=== PATIENT | male | born 1995 | race African-American/Black ===

== ENCOUNTER 2017-02-07 19:06 | Inpatient (IN) | payer OTHER ==
--- NOTE | ~2017-02-07 | PN ---
Unit #: [id number] #: [id number] Patient: YVONNE NICHOLAS [id number] [facility] [address] [place] [address] [id number] MR#: [id number] NAME: YVONNE NICHOLAS ROOM: [facility] Age: 21 Sex: M Admission Date: 02/07/2017 : 1995 Attending Physician: Luis Angel Michael M.D. Admitting Physician: Xavier Ruiz NOTES DATE OF SERVICE: 02/10/2017 SUBJECTIVE Mr. Nicholas is a 21-year-old white male, who was seen today and chart was reviewed, and case was discussed with the staff. He has been anxious, withdrawn, and rather seclusive to himself. Meanwhile, he has been cooperative with the treatment recommendations and has been taking the medications and tolerating them fairly well with no reported side effects. MENTAL STATUS EXAMINATION Young white male, who was casually dressed with fair personal hygiene, appears to be in no acute distress or discomfort. He was awake and alert on interaction with intact orientation. His mood was anxious with a congruent affect. He denies any suicidal or homicidal ideations, and also denies any auditory or visual hallucinations. His insight and judgment remain slightly impaired. TREATMENT PLAN 1. We will continue him on his current medications and treatment protocol. We will monitor his response to the medications and make further adjustments as needed. 2. We will continue to follow up. Dictated by... Xavier Ruiz/ashlyl TD: 02/11/2017 16:01 JOB #: [id number] LAURA GARCIA NOTES Page 1 of 1 X Luis Angel Michael MD NOTE
--- NOTE | ~2017-02-07 | HP ---
Unit #: [id number] #: [id number] Patient: YVONNE NICHOLAS [id number] [place] [address] [id number] I MR#: [id number] NAME: YVONNE NICHOLAS ROOM: [facility] Age: 21 Sex: M Admission Date: 02/07/2017 : 1995 Attending Physician: Luis Angel Michael M.D. Admitting Physician: Luis Angel Michael M.D. Primary Care Physician: Generic Doctor Not In System HISTORY AND PHYSICAL HISTORY OF PRESENT ILLNESS Yvonne is a 21 year old admitted to [address] [place] [address] with depression and after verbalizing wanting to hurt himself. PAST MEDICAL HISTORY Nothing significant. PAST SURGICAL HISTORY Nothing reported. ALLERGIES No known drug allergies. SOCIAL HISTORY He smokes less than 1/2 pack per day. Denies alcohol. Admits to using marijuana on a daily basis. FAMILY HISTORY Medically noncontributory. REVIEW OF SYSTEMS CONSTITUTIONAL: No fever or chills. HEENT: Denies any sore throat, ear pain or runny nose. CARDIOVASCULAR: Denies chest pain, irregular heart rhythm or palpitations. CHEST: Denies shortness of breath or cough. No hemoptysis. GASTROINTESTINAL: Denies nausea, vomiting, diarrhea or chronic constipation. ENDOCRINE: Denies history of increased thirst or urination. No recent significant weight loss or gain. GENITOURINARY: Denies dysuria, frequency, or hematuria. SKIN: Denies any rashes. HEMATOLOGIC: Denies history of increased bleeding or bruising. MUSCULOSKELETAL: Denies any hot, swollen joints. No generalized muscle pain. NEUROLOGIC: Denies problems with vision or speech. No frequent, severe headaches. No numbness, tingling or weakness in any extremities. Denies loss of bladder or bowel control. CURRENT MEDICATIONS 1. Risperdal 1 mg q.h.s. 2. Celexa 20 mg daily. 3. Nicotine patch 7 mg daily. 4. Milk of Magnesia p.r.n. Unit #: [id number] #: [id number] Patient: YVONNE NICHOLAS 5. Maalox p.r.n. 6. Tylenol p.r.n. PHYSICAL EXAMINATION GENERAL: Alert, well-nourished, in no apparent distress. VITAL SIGNS: Blood pressure 132/68, heart rate 60, respirations 16, temperature 98.6. WEIGHT: 176. HEIGHT: 5 feet 11 inches. SKIN: Warm and dry without rash or lesion. HEENT: Normocephalic. TMs not viewed. Oral and nasal passages clear. Conjunctivae clear. PERRLA. EOMs intact. NECK: Supple without lymphadenopathy or thyromegaly. HEART: Regular rate and rhythm without murmur. LUNGS: Clear. ABDOMEN: Soft, nontender. : Not done. EXTREMITIES: No evidence of cyanosis, clubbing or edema. Moves all without focal deficit. NEUROLOGICAL: Grossly within normal limits. Cranial Nerves: II: Visual scott are intact. III, IV AND : Extraocular movements are intact. Pupils are equal, round and reactive to light. V: Facial sensation is grossly normal. VII: Facial movements and expression are normal. VIII: Auditory acuity grossly intact. IX, X: Uvula is midline. Phonation is normal. XI: Patient shrugs shoulders and turns head normally. XII: Tongue protrudes in the midline. Sensory and Motor Function: Sensory and motor sensation is grossly normal. Motor: moves all extremities well. Coordination: Gait is normal. Deep Tendon Reflexes: Intact. IMPRESSION Psychiatric admission. RECOMMENDATIONS PSYCHIATRIC: Per psychiatrist. MEDICAL: See no contraindications to participate in facility's activities. MEDICAL PROGNOSIS Good. MEDICAL CONDITION Stable. Dictated by... Cindi Malik P.A.-C. for Xavier Damon/rasheeda TD: 02/08/2017 17:44 JOB #: [id number] Unit #: [id number] #: [id number] Patient: YVONNE NICHOLAS HISTORY AND PHYSICAL Page 1 of 1 X Cindi Malik HISTORY AND PHYSICAL
--- NOTE | ~2017-02-07 | PN ---
Unit #: [id number] #: [id number] Patient: YVONNE NICHOLAS [id number] [facility] [address] [place] [address] [id number] MR#: [id number] NAME: YVONNE NICHOLAS ROOM: [facility] Age: 21 Sex: M Admission Date: 02/07/2017 : 1995 Attending Physician: Luis Angel Michael M.D. Admitting Physician: Luis Angel Michael M.D. Primary Care Physician: Generic Doctor Not In System [facility] NOTES DATE OF SERVICE 02/09/2017 DISCUSSION Mr. Nicholas is a 21-year-old male with mood disorder who was seen today. Chart was reviewed and case was discussed with the staff. She has been anxious, withdrawn, and rather seclusive to himself. Meanwhile, he has been cooperative with the treatment recommendations and has been taking the medications and tolerating them fairly well. MENTAL STATUS EXAMINATION Young male who is casually dressed with fair personal hygiene, appears to be in no acute distress or discomfort. He was awake and alert on interaction with intact orientation. His mood is anxious with a congruent affect. Speech is slow and goal-directed. He denies any suicidal or homicidal ideations. His insight and judgment remain slightly impaired. TREATMENT PLAN 1. We will continue him on his current medications and treatment protocol. We will monitor his response to the medications and make further adjustments as needed. 2. We will continue to follow up. Dictated by... Luis Angel Michael M.D. IAA/bzg TD: 02/10/2017 13:22 JOB #: [id number] Unit #: [id number] #: [id number] Patient: YVONNE NICHOLAS [facility] PROGRESS NOTES Page 1 of 1 X Luis Angel Michael MD X PROGRESS NOTE
--- NOTE | ~2017-02-07 | DS ---
Unit #: [id number] #: [id number] [facility] [id number] [facility] [address] [place] [address] [id number] I MR#: [id number] NAME: YVONNE NICHOLAS ROOM: [facility] Age: 21 Sex: M Admission Date: 02/07/2017 : 1995 Discharge Date: 02/12/2017 Attending Physician: Luis Angel Michael M.D. DISCHARGE SUMMARY IDENTIFYING DATA Mr. Nicholas is a 21-year-old single male, who is a resident of [place], [place], and was self-referred to the hospital on a voluntary basis. DISCHARGE DIAGNOSES Psychiatric: Major depressive disorder, recurrent, moderate, with psychosis. Medical: None. Stressors: Moderate psychosocial stressors. HISTORY OF PRESENT ILLNESS Please see initial psychiatric evaluation for details. PAST PSYCHIATRIC HISTORY Please see initial psychiatric evaluation for details. PAST MEDICAL HISTORY Please see initial psychiatric evaluation for details. HOSPITAL COURSE The patient was admitted to the adult psychiatric unit at [facility] and was oriented to the hospital environment, and was started on Celexa and Risperdal for mood and psychosis and was closely monitored. He was taking the medications regularly and was tolerating them fairly well and was able to show a decent therapeutic response and as such, it was decided that he will be discharged home and will continue treatment on an outpatient basis. DISCHARGE MEDICATIONS Celexa 20 mg a day for depression and Risperdal 1 mg at bedtime for psychosis. DISCHARGE CONDITION Stable. PROGNOSIS Fair. Dictated by... Xavier Ruiz/jackelyn Unit #: [id number] #: [id number] Patient: YVONNE NICHOLAS TD: 02/12/2017 15:07 JOB #: [id number] DISCHARGE SUMMARY Page 1 of 1 X Luis Angel Michael MD X DISCHARGE SUMMARY
--- NOTE | ~2017-02-07 | PA ---
Unit #: [id number] #: [id number] Patient: YVONNE NICHOLAS [id number] [facility] [address] [place] [address] [id number] I MR#: [id number] NAME: YVONNE NICHOLAS ROOM: [facility] Age: 21 Sex: M Admission Date: 02/07/2017 : 1995 Date of Assessment: 02/08/2017 Attending Physician: Luis Angel Michael M.D. Admitting Physician: Luis Angel Michael M.D. Primary Care Physician: Generic Doctor Not In System PSYCHIATRIC ASSESSMENT DATE OF SERVICE 02/08/2017. IDENTIFYING DATA Mr. Nicholas is a 21-year-old single male, who is a resident of [place], [place] and was self-referred to the hospital on a voluntary basis. CHIEF COMPLAINT "Recently just went to talk to a counselor, Jerrod Hawkins, and he sent me here." HISTORY OF PRESENT ILLNESS Mr. Nicholas is a 21-year-old male, who was referred here by his counselor and he stated that he has been "basically suicidal." I do not want to live. There are voices in my head. I cannot really make out what they are saying, but they are there and I kind of kept it to myself and I hear them all day long and they are getting louder and they are criticizing me, they call me dumb, making fun of me. Basically every day I wake up, I think about it, either hanging myself or shooting myself. I do not want to live like this. Am I going to walk around every day trying to have a conversation with someone and then listening to what my brain is saying and then I do not know what to listen to." He does report increased depression, anxiety, irritability, restlessness, feelings of hopelessness and helplessness, and auditory hallucinations which are derogatory and command in nature and as such, was seen to be danger to self and therefore recommendation for inpatient level of care was made. SUBSTANCE ABUSE HISTORY The patient reports history of cannabis dependence. Reports that he has been smoking 2 blunts on a daily basis. PAST PSYCHIATRIC HISTORY The patient has had outpatient psychiatric treatment in the past. Review of the medical records indicate that currently he is not seeing a psychiatrist, not taking psychotropic medications. PAST MEDICAL HISTORY No acute or chronic medical illnesses. ALLERGIES No known medication allergies. Unit #: [id number] #: [id number] Patient: YVONNE NICHOLAS PERSONAL AND SOCIAL HISTORY A 21-year-old male, who reports that he is single, unemployed, and lives at home with his grandmother and has fairly decent social support system. MENTAL STATUS EXAMINATION Young male, who was casually dressed with fair personal hygiene, appears to be in no acute distress or discomfort. He was awake and alert on interaction with intact orientation. His mood was anxious and depressed with a congruent affect. His speech was slow and restricted in content. His thought processes were disorganized with some looseness of associations and flight of ideas and paranoid ideations and auditory hallucinations and suicidal ideations. His insight and judgment remain significantly impaired. DIAGNOSTIC IMPRESSION Psychiatric: Major depressive disorder, recurrent, moderate, with psychosis. Medical: None. Stressors: Moderate psychosocial stressors. TREATMENT PLAN 1. The patient has presented with history of mood disorder and psychosis and has been decompensating and will need inpatient hospitalization for safety and stabilization. We will start him back on his home medications. We will adjust the medications and monitor response. 2. Supportive therapy was provided to the patient. 3. Safe, structured, and nourishing environment will be provided. ESTIMATED LENGTH OF STAY 5 to 7 days. ABILITY TO HELP SELF Limited. WILLINGNESS TO HELP SELF The patient appears to be willing to help self. STRENGTHS 1. Communicative. 2. Cooperative. PROBLEMS 1. Chronic dysphoric symptoms. 2. Poor social support system. DISCHARGE CRITERIA This will be contingent upon the patient's ability to show resolution of depression, psychosis, and his ability to stay safe to himself and others, particularly after discharge from the hospital. Dictated by... Luis Angel Michael M.D. Unit #: [id number] #: [id number] Patient: YVONNE NICHOLAS IAA/modl TD: 02/08/2017 08:28 JOB #: [id number] PSYCHIATRIC ASSESSMENT Page 1 of 1 X Luis Angel Michael MD PSYCHIATRIC ASSESSMENT
[2017-02-08 09:56] LABS: URINE BACTERIA AUWI NEG (NEGATIVE); URINE SQUAMOUS EPITHELIAL CELL MOD /[HPF]; UWBCS1 AUWI 50-100 (0-5)
[2017-02-08 10:17] LABS: AMPHETAMINE NEG (NEG); BARBITURATES NEG (NEG); BENZODIAZEPINES NEG (NEG); COCAINE NEG (NEG); MARIJUANA POS (NEG); OPIATES NEG (NEG); TRICYCLIC ANTIDEPRESSANTS NEG (NEG); U METHADONE NEG (NEG); URINE APPEARANCE CLOUDY; URINE COLOR YELLOW
[2017-02-08 10:18] LABS: URINE BILIRUBIN NEG (NEG); URINE GLUCOSE NEG (NEG); URINE KETONE NEG (NEG); URINE LEUKOCYTE ESTERASE 1+ (NEG); URINE NITRATE NEG (NEG); URINE PH 7.5 (5-8); URINE PROTEIN NEG (NEG); URINE SPECIFIC GRAVITY 1.025 (1.003-1.035)
[2017-02-08 10:19] LABS: URINE BLOOD NEG (NEG); URINE MUCUS PRESENT
[2017-02-08 10:20] LABS: U HYALINE CASTS AUWI 0-2 /[LPF]; URINE AMORPHOUS SEDIMENT AMORP URATES
[2017-02-08 12:28] LABS: BASOPHIL# 0.1 X10e3 (0-0.3); BASOPHIL% 1.1 % (0-2.5); EOSINOPHIL# 0.2 X10e3 (0-0.7); EOSINOPHIL% 3.7 % (0.0-7.0); HEMOGLOBIN 14.2 gm/dL (13.0-16.0); LYMPHOCYTE# 2.8 X10e3 (1.0-3.5); LYMPHOCYTE% 45.2 % (17.0-45.0); MEAN CELL VOLUME 85.5 FL (83-96); MEAN CORPUSCULAR HEMOGLOBIN 27.6 PG (28-34); MEAN CORPUSCULAR HGB CONC 32.3 g/dL (30-36); MEAN PLATELET VOLUME 8.7 FL (6.5-11.5); MONOCYTE# 0.5 X10e3 (0-1.0); MONOCYTE% 8.1 % (3.0-12.0); NEUTROPHIL# 2.6 X10e3 (1.5-7.1); NEUTROPHIL% 41.9 % (40-75); PLATELET COUNT 260 X10e3 (140-420); RED BLOOD COUNT 5.15 X10e (3.90-5.60); RED CELL DISTRIBUTION WIDTH 12.8 % (11.0-15.5); WHITE BLOOD COUNT 6.3 X10e3 (4.0-10.5)
[2017-02-08 12:29] LABS: DIFF IND NO
[2017-02-08 12:51] LABS: ALBUMIN SERUM 4.5 g/dL (3.5-5.0); BILIRUBIN,TOTAL 1.7 mg/dL (0.2-2.0); BUN/CREATININE RATIO 22.5; CALCIUM SERUM 9.7 mg/dL (8.4-10.2); CREATININE SERUM 0.8 mg/dL (0.6-1.4); GLOM FILT RATE Estimated 149.1 mL/min (>60); POTASSIUM 4.3 mmol/L (3.5-5.1); PROTEIN TOTAL SERUM 7.6 g/dL (6.0-8.3)
[2017-02-08 12:52] LABS: THYROID STIMULATING HORMONE 1.67 uIU/ml (0.34-5.60)
[2017-02-08 12:59] LABS: FREE THYROXIN (T4) 0.85 ng/dL (0.58-1.64)
== END 2017-02-12 11:10 | disposition home or self-care (01) | DRG 885 ==
LOC: P2L 22:15
PROVIDERS: Psychiatry & Neurology Psychiatry
DX: F33.3 Major depressive disorder, recurrent, severe with psychotic symptoms (principal); F17.210 Nicotine dependence, cigarettes, uncomplicated
CPT/HCPCS: 80053; 80307; 81003; 84439; 84443; 85025